=== PATIENT | female | born 1990 | race African-American/Black ===

== ENCOUNTER 2019-08-28 07:30 | Emergency (ER) | payer OTHER, SELFPAY ==
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
[2019-08-28 07:33] VITALS: BP 114/68; PULSE 75; RESP 16; TEMP 36.8; O2SAT 100
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
[2019-08-28] MEDS: ACETAMINOPHEN 500 MG TABLET 1000 MG PO (09:00)
[2019-08-28] MEDS: IBUPROFEN 600 MG TABLET PO (09:01)
[2019-08-28 10:08] VITALS: BP 98/50; PULSE 70; RESP 16; O2SAT 100
== END 2019-08-28 10:08 | disposition home or self-care (01) ==
PROVIDERS: Emergency Provider Emergency Medicine
DX: R51 Headache (principal); M54.5 Low back pain; V43.52XA Car driver injured in collision with other type car in traffic accident, initial encounter
CPT/HCPCS: 70450; 72125; 81025; 99284; A9270

== ENCOUNTER 2020-10-28 12:57 | Emergency (ER) | payer OTHER, MEDICAID, SELFPAY ==
[2020-10-28 13:04] VITALS: BP 118/61; PULSE 67; RESP 12; TEMP 36.9; O2SAT 100
--- NOTE | 2020-10-28 13:40 | ED.LOWEXIN ---
HPI - Extremity Injury (Lower) General Chief Complaint: Extremity Injury, Lower Stated Complaint: INJURED TOE Source: patient Mode of arrival: ambulatory Limitations: no limitations History of Present Illness HPI Narrative: Patient is a 30-year-old female who presents with injury to left great toe. Patient reports opening a door at a business which hit her toe partially avulsing her left great toenail. Patient reports tetanus shot up-to-date. She denies other injuries. She denies all other complaints at this time. Related Data Allergies Allergy/AdvReac Type Severity Reaction Status Date / Time No Known Allergies Allergy Verified 08/28/19 07:41 Review of Systems Review of Systems: CONSTITUTIONAL: Denies fever, chills, or sweats. EYES: Denies visual changes, redness, or discharge. ENT: Denies rhinorrhea, congestion, sore throat, or otalgia. CARDIOVASCULAR: Denies chest pain, palpitations, or edema. RESPIRATORY: Denies cough or dyspnea. GASTROINTESTINAL: Denies abdominal pain, nausea, vomiting, or diarrhea. GENITOURINARY: Denies dysuria or hematuria. SKIN: Denies rash or itching. MUSCULOSKELETAL: Reports injury to left great toe NEUROLOGIC: Denies headache, numbness, dizziness, or weakness. PSYCHIATRIC: Denies anxiety or depression. [facility] Surgical History Surgical History History of D&C Social History Social History Smoking status: Never smoker Alcohol intake: never Substance use: never Gender identity (if verbalized by the patient): Female Comments At the time of signature, I have reviewed and agree with nursing past medical, surgical, social, and family history unless otherwise noted. Please see nursing chart for further information. There is no relevant family history pertinent to the presenting complaint. Exam Narrative: GENERAL: Well-appearing, well-nourished, and in no acute distress. HEAD: Normocephalic, atraumatic. EYES: EOMI. No redness or drainage. Conjunctiva are normal. ENT: Mucous membranes pink and moist. CHEST: No respiratory distress. HEART: Regular rate and rhythm. EXTREMITIES: Normal range of motion. No edema. SKIN: Partial avulsion of left great toenail NEURO: No focal deficits. Alert and oriented x3. Gait steady. PSYCH: Normal affect. No signs of depression or anxiety. Course Vital Signs Vital signs: Vital Signs Temperature 36.9 C 10/28/20 13:04 Pulse Rate 67 10/28/20 13:04 Respiratory Rate 12 10/28/20 13:04 Blood Pressure 118/61 10/28/20 13:04 Pulse Oximetry 100 10/28/20 13:04 Temperature 36.9 C 10/28/20 13:04 Pulse Rate 67 10/28/20 13:04 Respiratory Rate 12 10/28/20 13:04 Blood Pressure 118/61 10/28/20 13:04 Pulse Oximetry 100 10/28/20 13:04 Reviewed Critical Care Time Critical Care Time Critical Care Time: No Discharge Plan Discharge Clinical Impression: Nail avulsion of toe Patient Disposition: Home, Self-Care Condition: Stable Instructions: Antibiotic Form Additional Instructions: Do not remove Steri-Strips until they gently wear off. Keep wound clean or dry for 48 hours. Take antibiotics as directed. Follow-up with podiatry as needed. Prescriptions: New cephalexin 500 mg capsule 500 mg PO Q6H 5 Days Qty: 20 RF: 0 ibuprofen 800 mg tablet 800 mg PO TID PRN (Reason: pain) Qty: 20 RF: 0 Follow-up/Referrals: PHYSICIAN,FROTHING MACHINE OPERATOR [Primary Care Provider] - Time of Disposition: 14:08
== END 2020-10-28 14:22 | disposition home or self-care (01) ==
PROVIDERS: Emergency Provider Nurse Practitioner
DX: S91.202A Unspecified open wound of left great toe with damage to nail, initial encounter (principal); W20.8XXA Other cause of strike by thrown, projected or falling object, initial encounter
CPT/HCPCS: 99213; G0463

== ENCOUNTER 2021-01-06 19:12 | Emergency (ER) | payer OTHER, SELFPAY ==
--- NOTE | 2021-01-06 19:13 | ED.URI ---
HPI - URI/Sore Throat General Chief Complaint: Upper Respiratory Infection Stated Complaint: SORE THROAT Time Seen by Provider: 01/06/21 19:13 Source: patient and RN notes reviewed History of Present Illness HPI Narrative: Patient is a 30-year-old female who presents the urgent care with complaints of sore throat that started yesterday. Patient denies of any fever, chills, vomiting, headache or abdominal pain. Patient states that she has had intermittent nausea throughout the day but currently denies of any nausea. Patient has not taken anything for her symptoms. Denies of any other upper respiratory symptoms. Denies of any known exposure to strep or Covid. No other acute complaints. No acute distress noted. Patient read the plan of care. Some parts of this dictation were generated by voice recognition software and may contain typographical and/or grammatical inaccuracies. Related Data Allergies Allergy/AdvReac Type Severity Reaction Status Date / Time No Known Allergies Allergy Verified 08/28/19 07:41 Review of Systems Review of Systems: CONSTITUTIONAL: Denies fever, chills, or sweats. EYES: Denies visual changes, redness, or discharge. ENT: Denies rhinorrhea, congestion, otalgia. Reports of sore throat CARDIOVASCULAR: Denies chest pain, palpitations, or edema. RESPIRATORY: Denies cough or dyspnea. GASTROINTESTINAL: Denies abdominal pain, nausea, vomiting, or diarrhea. GENITOURINARY: Denies dysuria or hematuria. SKIN: Denies rash or itching. MUSCULOSKELETAL: Denies back pain, joint pain, or myalgia. NEUROLOGIC: Denies headache, numbness, or weakness. All other systems reviewed are negative, except as documented in HPI. [facility] Surgical History Surgical History History of D&C Social History Social History Smoking status: Never smoker Alcohol intake: never Substance use: never Gender identity (if verbalized by the patient): Female Comments At the time of my signature, I reviewed and agree with the nursing past medical, surgical, social, and family history. There is no relevant family history pertinent to the patient complaint. Exam Narrative: GENERAL: This is a well-nourished, well-developed patient, in no apparent distress. HEAD: normocephalic, atraumatic. EYES: PERRL. Sclera clear/white. Vision is grossly intact. EARS: External ears normal, auditory canals clear and without drainage, TMs normal without perforation. Hearing grossly intact. NOSE: External nose normal with no obvious nasal discharge, nares without redness, no rhinorrhea. THROAT: Mucous membranes moist, mild erythema noted posterior oropharynx with mild postnasal drainage NECK: Neck supple CARDIOVASCULAR: Regular rate and rhythm without murmurs, gallops, or rubs. RESPIRATORY: Clear to auscultation. Breath sounds equal bilaterally. No wheezes, rales, or rhonchi. SKIN: warm, intact with no suspicious lesions or rash, good texture and turgor. NEURO: awake, alert, and oriented to person, place and time. There were no obvious focal neurologic abnormalities. EXTREMITIES: No clubbing, cyanosis, or edema. Course Vital Signs Vital signs: Vital Signs Temperature 98.0 F 01/06/21 19:16 Pulse Rate 68 01/06/21 19:16 Respiratory Rate 12 01/06/21 19:16 Blood Pressure 120/61 01/06/21 19:16 Pulse Oximetry 100 01/06/21 19:16 Temperature 98.0 F 01/06/21 19:16 Pulse Rate 68 01/06/21 19:16 Respiratory Rate 12 01/06/21 19:16 Blood Pressure 120/61 01/06/21 19:16 Pulse Oximetry 100 01/06/21 19:16 Reviewed MDM - URI/Sore Throat MDM Narrative Medical decision making narrative: Reviewed lab results with the patient. She is aware that strep swab was negative. Educated patient on culture we will call within 72 hours if culture is positive and antibiotics necessary. Advised the patient to use [id number] medica
[2021-01-06 19:16] VITALS: BP 120/61; PULSE 68; RESP 12; TEMP 36.7; O2SAT 100
== END 2021-01-06 19:31 | disposition home or self-care (01) ==
PROVIDERS: Emergency Provider Nurse Practitioner Family
DX: J02.9 Acute pharyngitis, unspecified (principal)
CPT/HCPCS: 87081; 87880; 99213; G0463

== ENCOUNTER 2022-01-03 07:40 | Emergency (ER) | payer OTHER, SELFPAY ==
[2022-01-03 07:46] VITALS: BP 114/71; PULSE 78; RESP 18; TEMP 36.4; O2SAT 100
[2022-01-03] MEDS: diazePAM (*CRX) 5 MG TABLET PO (09:29)
--- NOTE | 2022-01-03 09:31 | ED.NECK ---
HPI - Neck Pain/Injury General Chief Complaint: Neck Pain/Injury Stated Complaint: neck pain Time Seen by Provider: 01/03/22 08:56 History of Present Illness HPI Narrative: 31-year-old female presents the emergency room with a sudden onset of neck pain. Patient denies injury or trauma. States yesterday she began to develop neck pain that radiates into her mid back. Pain is worse with rotation and lateral bend. Patient denies difficulty swallowing or difficulty breathing. Related Data Allergies Allergy/AdvReac Type Severity Reaction Status Date / Time No Known Allergies Allergy Verified 08/28/19 07:41 Review of Systems Review of Systems: CONSTITUTIONAL: Denies fever, chills, or sweats. EYES: Denies visual changes, redness, or discharge. ENT: Denies rhinorrhea, congestion, sore throat, or otalgia. CARDIOVASCULAR: Denies chest pain, palpitations, or edema. RESPIRATORY: Denies cough or dyspnea. GASTROINTESTINAL: Denies abdominal pain, nausea, vomiting, or diarrhea. GENITOURINARY: Denies dysuria or hematuria. SKIN: Denies rash or itching. MUSCULOSKELETAL: Reports neck pain NEUROLOGIC: Denies headache, numbness, dizziness, or weakness. PSYCHIATRIC: Denies anxiety or depression. [facility] Surgical History Surgical History History of D&C Social History Social History Smoking status: Never smoker Alcohol intake: never Substance use: never Gender identity (if verbalized by the patient): Female Exam Narrative: GENERAL: Well-appearing, well-nourished, no physical limitations, and in no acute distress. HEAD: Normocephalic, atraumatic. EYES: Conjunctivae normal, PERRLA and EOMI. NECK: Supple. CHEST: Clear to auscultation. No respiratory distress. No wheezes rales or rhonchi. HEART: Regular rate and rhythm. No murmur heard. Normal peripheral pulses. BACK: No midline cervical tenderness, step-offs, bony abnormality; LROM with bilateral lateral bend. Positive tenderness with muscle spasms over bilateral superior aspects of her trap muscles EXTREMITIES: Normal range of motion. No edema. No clubbing or cyanosis SKIN: Warm, dry, no rash. No noted wounds NEURO: No focal deficits. Alert and oriented x3. MAEW. CN's II-XI intact bilaterally, normal gait PSYCH: Cooperative. Normal mood and affect. Course Course Emergency Course: Patient requesting x-rays of her C-spine. Explained to patient that because there is no trauma or injury, imaging was not necessary. Offered patient IM diazepam for possible torticollis, she refused. Instead patient was agreeable to oral diazepam. Vital Signs Vital signs: Vital Signs Temperature 36.4 C L 01/03/22 07:46 Pulse Rate 78 01/03/22 07:46 Respiratory Rate 18 01/03/22 07:46 Blood Pressure 114/71 01/03/22 07:46 Pulse Oximetry 100 01/03/22 07:46 Oxygen Delivery Room Air 01/03/22 07:46 Temperature 36.4 C L 01/03/22 07:46 Pulse Rate 78 01/03/22 07:46 Respiratory Rate 18 01/03/22 07:46 Blood Pressure 114/71 01/03/22 07:46 Pulse Oximetry 100 01/03/22 07:46 Oxygen Delivery Room Air 01/03/22 07:46 Discharge Plan Discharge Clinical Impression: Acute strain of neck muscle Patient Disposition: Home, Self-Care Condition: Stable Instructions: Antibiotic Form, Cervical Strain (ED), Neck Pain (ED) Additional Instructions: Recommend massage, heat, rest and therapeutic pulsating device. Prescriptions: New methocarbamol 500 mg tablet 500 mg PO TID Qty: 21 0RF Follow-up/Referrals: PHYSICIAN,INDEPENDENT PRODUCER [Primary Care Provider] - Time of Disposition: 09:07
[2022-01-03 09:34] VITALS: RESP 16
== END 2022-01-03 09:35 | disposition home or self-care (01) ==
LOC: ANHED 09:08
PROVIDERS: Emergency Provider Nurse Practitioner Family
DX: S16.1XXA Strain of muscle, fascia and tendon at neck level, initial encounter (principal); X58.XXXA Exposure to other specified factors, initial encounter
CPT/HCPCS: 99283; A9270

== ENCOUNTER 2022-06-16 21:59 | Emergency (ER) | payer OTHER, SELFPAY ==
--- NOTE | ~2022-06-16 | XR_ITS ---
Cervical Spine: AP, lateral, open-mouth views Clinical History: Pain Findings: The normal lordotic curve is maintained. The vertebral bodies and posterior elements appea r intact. The intervertebral disc spaces are well maintained. Pre-vertebral soft tissues are unremar kable. Impression: No significant abnormality is seen. Please note that CT imaging is significantly more sensitive for cervical spine trauma, and should be performed for further evaluation if clinically warranted. Reviewed, dictated and finalized at [facility]. Impression: No significant abnormality is seen. Please note that CT imaging is significant ly more sensitive for cervical spine trauma, and should be performed for furthe r evaluation if clinically warranted.
--- NOTE | ~2022-06-16 | XR_ITS ---
AP and oblique views of the left ribs, and PA and lateral chest radiographs Clinical History: Pain Findings: No rib fracture is seen. Osseous alignment is anatomic. Lungs are clear, without focal cons olidation or pleural effusion. Cardiomediastinal contour is within normal limits. Soft tissues are un remarkable. Impression: No rib fracture is seen. Normal chest. Reviewed, dictated and finalized at [facility]. Impression: No rib fracture is seen. Normal chest.
[2022-06-16 22:04] VITALS: BP 107/68; PULSE 71; RESP 18; TEMP 36.7; O2SAT 99
[2022-06-17 01:26] VITALS: BP 115/66; PULSE 73; RESP 12; O2SAT 100
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
[2022-06-17] MEDS: ACETAMINOPHEN 500 MG TABLET 1000 MG PO (02:47)
[2022-06-17 02:49] VITALS: BP 114/65; PULSE 76; RESP 12; O2SAT 100
[2022-06-17 04:27] VITALS: BP 117/79; PULSE 61; RESP 13; O2SAT 100
== END 2022-06-17 04:29 | disposition home or self-care (01) ==
PROVIDERS: Emergency Provider Physician Assistant
DX: S16.1XXA Strain of muscle, fascia and tendon at neck level, initial encounter (principal); S29.011A Strain of muscle and tendon of front wall of thorax, initial encounter; V43.52XA Car driver injured in collision with other type car in traffic accident, initial encounter
CPT/HCPCS: 71046; 71100; 72050; 99283; 99284; A9270